=== PATIENT | female | born 1955 | race Caucasian/White ===

== ENCOUNTER 2018-04-04 06:00 | Day surgery (SDC) | payer OTHER ==
[2018-04-04] MEDS ORDERED: MEPERIDINE HCL/PF 100 MG/ML AMP ONE (07:26)
[2018-04-04] MEDS ORDERED: SIMETHICONE 40 MG/0.6 ML ML ONE (07:26)
[2018-04-04] MEDS: MIDAZOLAM HCL 5 MG/5 ML VIAL ONE ×3 (08:43→08:48)
[2018-04-04 13:07] VITALS: BP_SYST 115
== END 2018-04-04 10:15 | disposition home or self-care (01) ==
LOC: SDS 06:00
PROVIDERS: ATTEND Internal Medicine Gastroenterology
DX: K29.50 Unspecified chronic gastritis without bleeding (principal); Z98.84 Bariatric surgery status; K59.09 Other constipation; K63.89 Other specified diseases of intestine; E66.9 Obesity, unspecified; Z79.899 Other long term (current) drug therapy; Z90.49 Acquired absence of other specified parts of digestive tract; Z90.710 Acquired absence of both cervix and uterus; Z98.890 Other specified postprocedural states; Z68.33 Body mass index [BMI] 33.0-33.9, adult; D50.9 Iron deficiency anemia, unspecified
CPT/HCPCS: 43239; 43249; 88305; 88312; 88313; J2175; J2250

== ENCOUNTER 2018-11-07 06:30 | Day surgery (SDC) | payer OTHER ==
[2018-11-07] MEDS ORDERED: MEPERIDINE HCL/PF 100 MG/ML AMP ONE (07:14)
[2018-11-07] MEDS ORDERED: SIMETHICONE 40 MG/0.6 ML ML ONE (07:15)
[2018-11-07] MEDS ORDERED: MIDAZOLAM HCL 5 MG/5 ML VIAL ONE (07:15)
[2018-11-07] MEDS: MIDAZOLAM HCL 5 MG/5 ML VIAL ONE ×2 (07:39→07:41)
[2018-11-07 09:30] VITALS: BP_SYST 108
== END 2018-11-07 08:55 | disposition home or self-care (01) ==
LOC: SMU 06:30 → SDS 06:30
PROVIDERS: ATTEND Internal Medicine Gastroenterology
DX: K57.30 Diverticulosis of large intestine without perforation or abscess without bleeding (principal); R19.4 Change in bowel habit; Z86.010 Personal history of colon polyps; K64.8 Other hemorrhoids
CPT/HCPCS: 45378; J2175; J2250

== ENCOUNTER 2019-04-27 08:33 | Outpatient (CLI) | payer OTHER ==
[2019-04-27] MEDS ORDERED: IOHEXOL 100 ML IV ONE (09:30)
[2019-04-27] MEDS ORDERED: DIATR MEGLU/DIATRIZ SOD 30 ML SOLUTION PO ONE (09:30)
== END 2019-04-27 17:47 | disposition home or self-care (01) ==
LOC: SCT 08:33
PROVIDERS: ATTEND Internal Medicine Gastroenterology
DX: K42.9 Umbilical hernia without obstruction or gangrene (principal); K43.9 Ventral hernia without obstruction or gangrene; Z90.49 Acquired absence of other specified parts of digestive tract; Z98.84 Bariatric surgery status
CPT/HCPCS: 74177; Q9964; Q9967

== ENCOUNTER 2019-05-29 08:12 | Day surgery (SDC) | payer OTHER ==
[~2019-05-29] VITALS: Ht 154.9 cm; Wt 78.9 kg
[2019-05-29] MEDS ORDERED: NS IRRIG SOLN 1000 ML IR ONE (11:30)
[2019-05-29] MEDS ORDERED: MIDAZOLAM HCL 5 MG/5 ML VIAL IVP ONE (11:30)
[2019-05-29] MEDS ORDERED: LR 1,000 ML IV.SOLN IV ONE (11:30)
[2019-05-29] MEDS ORDERED: PROPOFOL 200MG/ 20ML VIAL (DIPRIVAN) IV ONE (11:30)
[2019-05-29] MEDS ORDERED: fentaNYL CITRATE/PF 100 MCG/2 ML AMP IVP PRN ×2 (12:15)
[2019-05-29] MEDS ORDERED: ONDANSETRON HCL 4 MG/2 ML VIAL IVP PRN (12:15)
[2019-05-29 16:32] VITALS: BP_SYST 138
== END 2019-05-29 14:40 | disposition home or self-care (01) ==
LOC: SDS 08:12 → SMU 08:12 → SDS 14:40
PROVIDERS: ATTEND Urology
DX: N39.41 Urge incontinence (principal); Z88.2 Allergy status to sulfonamides; Z88.8 Allergy status to other drugs, medicaments and biological substances; Z98.890 Other specified postprocedural states; Z90.49 Acquired absence of other specified parts of digestive tract
CPT/HCPCS: 64561; 93005; C1787; C1897 ×2; J2250; J2704; J7120; 76000

== ENCOUNTER 2019-06-26 08:45 | Day surgery (SDC) | payer OTHER ==
[~2019-06-26] VITALS: Ht 154.9 cm; Wt 79.4 kg
[~2019-06-26 08:45] MED LIST: CEFTRIAXONE SOD 1 GM/ D5W 50 ML IV ONE
[2019-06-26] MEDS ORDERED: HYDROmorphone 1 MG INJ. 1 MG/ML AMPUL IVP PRN ×2 (13:30)
[2019-06-26] MEDS ORDERED: HYDROmorphone 2 MG/ML VIAL IVP PRN (13:30)
[2019-06-26] MEDS ORDERED: KETOROLAC TROMETHAMINE 30 MG VIAL IVP PRN ×2 (13:30)
[2019-06-26] MEDS ORDERED: PROPOFOL 200MG/ 20ML VIAL (DIPRIVAN) IV ONE (14:10)
[2019-06-26] MEDS ORDERED: SEVOFLURANE 15 MIN GAS INH ONE (14:10)
[2019-06-26] MEDS ORDERED: LR 1,000 ML IV.SOLN IV ONE (14:10)
[2019-06-26] MEDS ORDERED: ONDANSETRON HCL 4 MG/2 ML VIAL ONE (14:10)
[2019-06-26] MEDS ORDERED: SUCCINYLCHOLINE CHLORIDE 20 MG/ML(QUELICIN) ONE (14:10)
[2019-06-26] MEDS ORDERED: METOCLOPRAMIDE HCL 10 MG/2 ML VIAL ONE (14:10)
[2019-06-26] MEDS ORDERED: fentaNYL CITRATE/PF 100 MCG/2 ML AMP ONE (14:10)
[2019-06-26] MEDS ORDERED: WATER FOR IRRIGATION,STERILE 1,000 ML IRRIG.SOLN IR ONE (14:10)
[2019-06-26 15:32] VITALS: BP_SYST 119
== END 2019-06-26 15:30 | disposition home or self-care (01) ==
LOC: SMU 08:45 → SDS 08:45
PROVIDERS: ATTEND Urology
DX: N39.41 Urge incontinence (principal); E66.3 Overweight; E46 Unspecified protein-calorie malnutrition
CPT/HCPCS: 64590; C1767; C1778; C1787; C1894; J0330; J0696; J2405; J2704; J2765; J3010; J7060; J7120; 76000

== ENCOUNTER 2019-07-22 05:25 | Inpatient (IN) | payer OTHER ==
[~2019-07-22] VITALS: Ht 154.9 cm; Wt 79.4 kg
[2019-07-22] MEDS ORDERED: CEFAZOLIN SOD 1 GM in D5W 50 ML IV ONE (08:00)
[2019-07-22] MEDS ORDERED: fentaNYL CITRATE/PF 100 MCG/2 ML AMP IVP PRN ×2 (12:15)
[2019-07-22] MEDS ORDERED: ONDANSETRON HCL 4 MG/2 ML VIAL IVP PRN ×2 (12:15→15:15)
[2019-07-22] MEDS ORDERED: POLYMYXIN 500,000/BACIT.10,000 UNITS in NS IRR 1 L IR ONE (13:10)
[2019-07-22] MEDS ORDERED: BUPIVACAINE LIPOSOME/PF 266 MG/20 ML VIAL INFIL ONE (14:40)
[2019-07-22] MEDS ORDERED: MIDAZOLAM HCL 5 MG/ML VIAL (VERSED) IV ONE (15:10)
[2019-07-22] MEDS ORDERED: ROCURONIUM BROMIDE 10 MG/ML (ZEMURON) ONE (15:10)
[2019-07-22] MEDS ORDERED: GLYCOPYRROLATE 0.2 MG/ML VIAL ONE (15:10)
[2019-07-22] MEDS ORDERED: PROPOFOL 200MG/ 20ML VIAL (DIPRIVAN) IV ONE (15:10)
[2019-07-22] MEDS ORDERED: LR 1,000 ML IV.SOLN IV ONE (15:10)
[2019-07-22] MEDS ORDERED: NS IRRIG SOLN 1000 ML IR ONE (15:10)
[2019-07-22] MEDS ORDERED: ONDANSETRON HCL 4 MG/2 ML VIAL ONE ×2 (15:10→15:52)
[2019-07-22] MEDS ORDERED: SEVOFLURANE 15 MIN GAS INH ONE (15:10)
[2019-07-22] MEDS ORDERED: KETOROLAC TROMETHAMINE 30 MG VIAL ONE (15:10)
[2019-07-22] MEDS ORDERED: fentaNYL CITRATE/PF 100 MCG/2 ML AMP ONE (15:10)
[2019-07-22] MEDS ORDERED: CEFAZOLIN 2 GM IVPB PREMIX 50 ML IV ONE (15:10)
[2019-07-22] MEDS ORDERED: HYDROcodone/ACETAMIN 5-325 MG TAB (NORCO/ VICODIN) PO PRN (15:15)
[2019-07-22] MEDS ORDERED: HYDROmorphone 2 MG/ML VIAL IVP PRN (15:15)
[2019-07-22] MEDS ORDERED: ACETAMINOPHEN 325 MG TABLET PO PRN (15:15)
[2019-07-22] MEDS ORDERED: ZOLPIDEM TARTRATE 5 MG TABLET PO PRN (15:15)
[2019-07-22] MEDS ORDERED: MORPHINE 4 MG/ML INJ. SYRINGE IVP PRN (15:15)
[2019-07-22] MEDS ORDERED: LR 300 ML IV ONE (16:00)
[2019-07-22] MEDS ORDERED: METOCLOPRAMIDE HCL 10 MG/2 ML VIAL IVP ONE (16:15)
[2019-07-22] MEDS ORDERED: METOCLOPRAMIDE HCL 10 MG/2 ML VIAL ONE (16:22)
[2019-07-22 16:30] VITALS: BP_SYST 98
[2019-07-22] MEDS: D5NS 1,000 ML IV SCH ×2 (18:01→23:52)
[2019-07-22 19:30] VITALS: BP_SYST 104
[2019-07-23] VITALS: BP_SYST 116
[2019-07-23] MEDS ORDERED: PIPERACILLIN/TAZOBACTAM 3.375 GM/VIAL (ZOSYN) IV ONE ×2 (01:46→04:09)
[2019-07-23] MEDS: PIPERACILLIN/TAZO 3.375/DEX-IS 50 ML IV SCH ×5 (01:51→23:18)
[2019-07-23] MEDS: D5NS 1,000 ML IV SCH ×3 (07:02→23:18)
[2019-07-23 07:08] LABS: BASOPHILS % (AUTO) 0.2 % (0.0-2.0); EOSINOPHILS # (AUTO) 0.2 K/uL (0.0-0.4); EOSINOPHILS % (AUTO) 2.6 % (0.0-4.0); HEMATOCRIT 32.1 % (36-48); HEMOGLOBIN 10.5 g/dL (12.0-16.0); LYMPHOCYTES # (AUTO) 1.1 K/uL (1.0-5.5); LYMPHOCYTES % (AUTO) 12.9 % (20.5-51.5); MEAN CORPUSCULAR HEMOGLOBIN 27 pg (27-31); MEAN CORPUSCULAR HGB CONC 33 % (32-36); MEAN CORPUSCULAR VOLUME 83 fL (79.0-98.0); MONOCYTES # (AUTO) 0.5 K/uL (0.0-1.0); MONOCYTES % (AUTO) 5.7 % (1.7-9.3); NEUTROPHILS # (AUTO) 6.7 K/uL (1.8-7.7); NEUTROPHILS % (AUTO) 78.6 % (40.0-70.0); PLATELET COUNT (AUTO) 201 K/uL (130-430); RED BLOOD CELL COUNT(AUTO) 3.86 MIL/uL (4.2-6.2); RED CELL DISTRIBUTION WIDTH 17.2 % (9.0-15.0); WHITE BLOOD COUNT (AUTO) 8.5 K/uL (4.8-10.8)
[2019-07-23 07:21] LABS: ALBUMIN 2.7 g/dL (3.4-4.8); CALCIUM 7.6 mg/dL (8.4-11.0); CREATININE 0.66 mg/dL (0.55-1.30); POTASSIUM 3.2 mmol/L (3.5-5.1); TOTAL BILIRUBIN 0.8 mg/dL (0.0-1.0)
[2019-07-23 07:35] VITALS: BP_SYST 118
[2019-07-23] MEDS ORDERED: POTASSIUM CHLORIDE 40 MEQ in NS 250 ML IV ONE (07:45)
[2019-07-23] MEDS: ENOXAPARIN SODIUM 40 MG/0.4 ML SYRINGE SUBCUT SCH (08:20)
[2019-07-23 12:39] VITALS: BP_SYST 122
[2019-07-23 16:22] VITALS: BP_SYST 124
[2019-07-23 20:08] VITALS: BP_SYST 131
[2019-07-23] MEDS ORDERED: COMMUNICATION ORDER XX PRN (22:30)
[2019-07-24 00:30] VITALS: BP_SYST 129
[2019-07-24] MEDS: PIPERACILLIN/TAZO 3.375/DEX-IS 50 ML IV SCH ×2 (05:25→12:15)
[2019-07-24] MEDS: D5NS 1,000 ML IV SCH (05:26)
[2019-07-24 08:01] VITALS: BP_SYST 138
[2019-07-24] MEDS: ENOXAPARIN SODIUM 40 MG/0.4 ML SYRINGE SUBCUT SCH (08:25)
[2019-07-24 12:15] VITALS: BP_SYST 132
[2019-07-24] MEDS ORDERED: HYDR-4272 PO (12:28)
== END 2019-07-24 13:55 | disposition home or self-care (01) | DRG 330 ==
LOC: SDS 05:25 → STU 15:15 → SMU 16:49 → STU 18:00 → SMU 07-23 09:38
PROVIDERS: ADMIT Surgery; ATTEND Surgery
PROC: 0DQL0ZZ Repair Transverse Colon, Open Approach (ICD-10-PCS; 2019-07-22)
PROC: 0DN80ZZ Release Small Intestine, Open Approach (ICD-10-PCS; 2019-07-22)
PROC: 0WQF0ZZ Repair Abdominal Wall, Open Approach (ICD-10-PCS; 2019-07-22)
PROC: 0DQV0ZZ Repair Mesentery, Open Approach (ICD-10-PCS; 2019-07-22)
PROC: 0DNU0ZZ Release Omentum, Open Approach (ICD-10-PCS; principal; 2019-07-22 11:30)
DX: K42.9 Umbilical hernia without obstruction or gangrene (principal); K91.72 Accidental puncture and laceration of a digestive system organ or structure during other procedure; K43.9 Ventral hernia without obstruction or gangrene; K66.0 Peritoneal adhesions (postprocedural) (postinfection); Z98.84 Bariatric surgery status; Y83.8 Other surgical procedures as the cause of abnormal reaction of the patient, or of later complication, without mention of misadventure at the time of the procedure; Y92.238 Other place in hospital as the place of occurrence of the external cause
CPT/HCPCS: 36415; 80053; 85025; 87081; C1727; C9290; G0378; J0690; J1650; J1885; J2250; J2405; J2543; J2704; J2765; J3010; J3480; J3490; J7042; J7050; J7060; J7120

== ENCOUNTER 2020-04-01 11:44 | Outpatient (CLI) | payer OTHER ==
[~2020-04-01 11:44] MED LIST changes: -CEFTRIAXONE SOD 1 GM/ D5W 50 ML IV ONE; +HYDR-4272 PO
== END 2020-04-01 21:04 | disposition home or self-care (01) ==
LOC: SCT 11:44
PROVIDERS: ATTEND Surgery
DX: R10.9 Unspecified abdominal pain (principal); Z98.890 Other specified postprocedural states; Z90.49 Acquired absence of other specified parts of digestive tract; Z90.711 Acquired absence of uterus with remaining cervical stump

== ENCOUNTER 2023-12-12 09:59 | Day surgery (SDC) | payer OTHER ==
[2023-12-02 10:10] LABS: BASOPHILS # (AUTO) 0.1 K/uL (0.0-0.2); BASOPHILS % (AUTO) 1.2 % (0.0-2.0); EOSINOPHILS # (AUTO) 0.1 K/uL (0.0-0.4); EOSINOPHILS % (AUTO) 1.8 % (0.0-4.0); HEMATOCRIT 35.5 % (36-48); HEMOGLOBIN 11.4 g/dL (12.0-16.0); LYMPHOCYTES # (AUTO) 2.3 K/uL (1.0-5.5); LYMPHOCYTES % (AUTO) 52.5 % (20.5-51.5); MEAN CORPUSCULAR HEMOGLOBIN 24 pg (27-31); MEAN CORPUSCULAR HGB CONC 32 % (32-36); MEAN CORPUSCULAR VOLUME 74 fL (79.0-98.0); MONOCYTES # (AUTO) 0.3 K/uL (0.0-1.0); MONOCYTES % (AUTO) 6.8 % (1.7-9.3); NEUTROPHILS # (AUTO) 1.6 K/uL (1.8-7.7); NEUTROPHILS % (AUTO) 37.7 % (40.0-70.0); PLATELET COUNT (AUTO) 294 K/uL (130-430); RED BLOOD CELL COUNT(AUTO) 4.77 MIL/uL (4.2-6.2); RED CELL DISTRIBUTION WIDTH 20.7 % (9.0-15.0); WHITE BLOOD COUNT (AUTO) 4.4 K/uL (4.8-10.8)
[2023-12-02 10:19] LABS: CALCIUM 8.5 mg/dL (8.4-11.0); CREATININE 0.63 mg/dL (0.55-1.30)
[2023-12-02 10:22] LABS: BILIRUBIN,URINE NEGATIVE (NEGATIVE); BLOOD, URINE NEGATIVE (NEGATIVE); CLARITY/URINE CLEAR (CLEAR); COLOR,URINE YELLOW (YELLOW); GLUCOSE,URINE NEGATIVE (NEGATIVE); INR 1.1 (0.8-1.2); KETONES,URINE NEGATIVE (NEGATIVE); LEUKOCYTE ESTERASE ,URINE TRACE (NEGATIVE); NITRITE, URINE NEGATIVE (NEGATIVE); PH,URINE 6.5 (5.0-8.0); PROTEIN URINE NEGATIVE (NEGATIVE); PROTHROMBIN TIME 11.1 SECS (9.5-12.5); UROBILINOGEN,URINE 0.2 (0.2-1.0)
[2023-12-02 10:45] LABS: BACTERIA,URINE RARE /HPF (None Seen); RBC,URINE 0-3 /HPF (0-3)
[~2023-12-12] VITALS: Ht 154.9 cm; Wt 75.7 kg
[~2023-12-12 09:59] MED LIST changes: +CEFAZOLIN SOD 2 GM in D5W 50 ML IV ONE
[2023-12-12] MEDS ORDERED: DEXAMETHASONE SOD PHOSPHATE 4 MG/ML VIAL ONE (11:12)
[2023-12-12 12:07] VITALS: O2SAT 100
[2023-12-12] MEDS ORDERED: METOCLOPRAMIDE HCL 10 MG/2 ML VIAL IVP PRN (15:15)
[2023-12-12] MEDS ORDERED: ACETAMINOPHEN I.V. 1000 MG 100 ML IV ONE (15:15)
[2023-12-12] MEDS ORDERED: ONDANSETRON HCL 4 MG/2 ML VIAL IVP PRN (15:15)
[2023-12-12] MEDS ORDERED: HYDROmorphone 1 MG/ML INJ. CARTRIDGE IVP PRN (15:15)
[2023-12-12 17:40] VITALS: BP_SYST 126; PULSE 75; RESP 16
== END 2023-12-12 17:42 | disposition home or self-care (01) ==
LOC: SMU 09:59 → SDS 09:59
PROVIDERS: ATTEND Urology
DX: R39.15 Urgency of urination (principal); K21.9 Gastro-esophageal reflux disease without esophagitis; Z90.710 Acquired absence of both cervix and uterus; Z88.1 Allergy status to other antibiotic agents; Z79.01 Long term (current) use of anticoagulants
CPT/HCPCS: 80048; 81000; 81001; 85025; 85610; 85730; 87081; 87086; 87186; 36415; 93005; 71046; 64590; 88300; J3490; J0690; J1100; J3465; J2405; J2704; J3010; J7060; J7120; C1787; C1767; C1778; 76000; 81015; 88311